=== PATIENT | female | born 1960 | race Caucasian/White ===

== ENCOUNTER 2016-10-31 00:10 | Inpatient (IN) | payer OTHER ==
[~2016-10-31] VITALS: Ht 167.6 cm; Wt 113.7 kg
--- NOTE | 2016-10-31 02:55 | ED ORDER SUMMARY ---
..... Patient: LA GUERRA OrderSheet [facility] VisitID: [id number] [address] [place] [address] 56y, F Registration Date/Time: 10/31/2016 ORDER SHEET Weight: 108.8 kg (stated) Allergies: Chlorhexidine, Nafcillin Sodium, Penicillins, Sulfa Drugs, Vancomycin GENERAL ORDERS: CBC w Diff Urgent (01:00 10/31/2016 Meron COLEMAN) (Ack 1:09 CHagerty ER Product Development Director) (1:42 Urinandez R.N.) CMP Urgent (01:00 10/31/2016 Meron COLEMAN) (Ack 1:09 Rayne ER Product Development Director) (1:42 Urinandez R.N.) PCT (Procalcitonin) Urgent (01:10/31/2016 Meron COLEMAN) (Ack 1:09 Rayne ER Product Development Director) (1:42 Urinandez R.N.) Lactate, Serum Urgent (01:10/31/2016 Meron COLEMAN) (Ack 1:09 Rayne ER Product Development Director) (1:42 Ava R.N.) CRP Urgent (01:00 10/31/2016 Meron COLEMAN) (Ack 1:09 Rayne ER Product Development Director) (1:42 Urinandez R.N.) Blood Culture (No) (N/A) Urgent (02:14 10/31/2016 Meron COLEMAN) (Ack 2:16 CHagerty ER Product Development Director) (2:30 CHagerty ER Product Development Director) MEDICATION ORDERS: Doxycycline Monohydrate PO 100 mg (NOW) (01:10/31/2016 Meron COLEMAN) (Ack 1:19 Ava R.N.) (1:58 Ava R.N.) IV FLUIDS: IV NS : initial bolus none -, then 250 mL/hr for 4h (NOW); Routine (:10/31/2016 Meron COLEMAN) (Ack 1:19 Ava R.N.) (1:57 Ava R.N.) Clindamycin IV 900 mg/50mL (NOW) (:10/31/2016 Meron COLEMAN) (Ack 1:19 Ava Contreras) (Cancelled: Other2:13 Meron COLEMAN) Vancomycin IV 25 mg/kg (NOW) (02:13 10/31/2016 Meron COLEMAN) (Ack 2:35 Ava Dalton.N.) (2:58 Ava R.N.) Benadryl IV 25 mg (NOW) (02:10/31/2016 Meron COLEMAN) (Ack 2:35 Ava ReddNAnnmarie) (2:39 Ava Dalton.N.) ORDER SHEET NOTES: [Electronically signed by Jacobo Khalil R.N. (04:09 10/31/2016)] [Electronically signed by Brice Barriga MD (08:56 10/31/2016)] [Electronically locked/signed by Jacobo Khalil R.N. (04:09 10/31/2016)]
--- NOTE | 2016-10-31 02:55 | ED NURSING NOTES ---
Clinical Report - Nurses [place] [address] [place] [address] 10/31/2016 0:13 Patient: LA GUERRA TRIAGE Triage time 00:22. Acuity: LEVEL 3. Chief Complaint: SKIN PROBLEM and . redness. --00:30 Jacobo Khalil R.N. 00:21 10/31/16. BP: 146/79. HR: 108. RR: 18. O2 saturation: 98%. Temp: 98.1 F. Pain level now: 10/16. --00:30 Jacobo Khalil R.N. Weight: 108.8 kg stated. Height/Length: 66 inches Per Patient. BMI: 38.7. --00: Jacobo Khalil R.N. Medications Lipitor substitute. Neurontin Oral 900mg, at bedtime. Tamoxifen Citrate Oral. Vitamin B-12 Oral. Vitamin D Oral. Vitamin E Complex Oral. --00:28 Jacobo Khalil R.N. Medication/allergy information source: the patient. --00:30 Jacobo Khalil R.N. Allergies Chlorhexidine. Nafcillin Sodium. Penicillins. Sulfa Drugs. Vancomycin. (Can take with Benadryl) --00: Jacobo Khalil R.N. History Arrived by private vehicle. Historian: patient. Accompanied by family. ( Redness and warmth on the left forearm started today. similar problem 2 months ago and was in the hospital for cellulitis and sepsis. No fever. Was driving today from [place] to [employer] fro work.). Reported as located on the left forearm. This started today. It is described as burning and painful. Treatment [employer]: Took ibuprofen. SURGERY HX: Right and left mastectomy. SOCIAL HX: Never smoker. --00:30 Jacobo Khalil R.N. PROBLEMS: Necrotizing Fascitis. Diabetes Mellitus Type 2. Breast Cancer. --00:29 Jacobo Khalil R.N. Interventions ID band on patient. To room. --00:30 Jacobo Khalil R.N. PHYSICAL ASSESSMENT Ambulatory to room. GENERAL / NEURO / PSYCH: Alert. The patient does not appear to be in acute distress. Appears in pain. Oriented X 4. HEENT: Pupils equal, round and reactive to light. Mucous membranes are pink. RESPIRATORY: Respirations not labored. Breath sounds within normal limits. CVS: Capillary refill less than 2 seconds. Pulses within normal limits. GI / : Abdomen nontender. SKIN: Skin is intact, warm and dry. Tenderness on the left forearm- associated with erythema, swelling and increased warmth. --00:31 Jacobo Khalil R.N. NURSING PROGRESS NOTES Head of bed elevated. Call light placed in reach. Side rails up x 1. Bed placed in lowest position. Brakes of bed on. Patient ready for evaluation- chart flagged and ED physician notified. --00:31 Jacobo Khalil R.N. 01:37 10/31/2016 Site #1 started via IV in the right hand with an 22g angiocath; one attempt. Blood drawn: rainbow set. Labeled in the presence of the patient and sent to the lab. Saline lock flushed with 10 mL saline. --01:42 Jacobo Khalil R.N. 01:57 10/31/2016 Started IV Fluids IV NS (Saline); at 250 mL/hr over 4 hour(s) via site #1 via IV pump. Allergies verified and confirmed 5 rights. IV patency established. IV site checked: no pain, redness, or swelling. IV flushed thoroughly pre- and post-medication administration. --01:58 Jacobo Khalil R.N. 01:58 10/31/2016 DOXYCYCLINE MONOHYDRATE PO 100 mg given. Allergies verified and confirmed 5 rights. --01:58 Jacobo Khalil R.N. 02:39 10/31/2016 Benadryl (DiphenhydrAMINE HCl) IVP 25 mg given over 2 minute(s) via site #1. Allergies verified, confirmed 5 rights and sedative warning given to the patient and patient's carboy filler. IV patency established. IV site checked: no pain, redness, or swelling. IV flushed thoroughly pre- and post-medication administration. IVP given by RN. --02:39 Jacobo Khalil R.N. 02:41 10/31/16. BP: 145/72. HR: 108. RR: 18. O2 saturation: 100%. Temp: 99.1 F (oral). --02:43 Jacobo Khalil R.N. Cardiac rhythm: sinus tachycardia. :patient confirmed. Blood samples drawn from the right antecubital space with syringe by tech ; labeled in presence of the patient and sent to lab: blood culture (1st set). The patient is resting quietly. Overall patient status is the same- she states feels the same. RESPIRATORY: No respiratory distress. Breath sounds normal. SKIN: Skin is warm and dry. Skin color within normal limits. --02:43 Jacobo Khalil R.N. 02:57 10/31/2016 Started 2 gm of Vancomycin IVPB in bag #1 500 mL; at 270 mL/hr over 2 hour(s) via site #1 via IV pump. Allergies verified and confirmed 5 rights. IV patency established. IV site checked: no pain, redness, or swelling. IV flushed thoroughly pre- and post-medication administration (Pre-treatment with Benadryl 25 mg IV). --02:58 Jacobo Khalil R.N. Cardiac rhythm: sinus tachycardia. Reassessment after (Benadryl then Vancomycin). She is calm and resting quietly. RESPIRATORY: No respiratory distress. Breath sounds normal. SKIN: Skin is warm and dry. --03:07 Jacobo Khalil R.N. 03:05 10/31/16. BP: 134/98. HR: 105. RR: 18. O2 saturation: 96%. --03:07 Jacobo Khalil R.N. DISPOSITION / DISCHARGE Cardiac rhythm: sinus tachycardia. Admitted to Acute Care. Transported via stretcher. Report was given to a nurse via a phone call. Report included patient's care, treatment, medications, reviewed medication reconcilliation, and condition (including any recent changes or anticipated changes). All questions were answered. Report was acknowledged and care was transferred. (Jason GARCIA). Patient's personal items; items were given to the patient. --03:57 Jacobo Khalil R.N. 03:54 10/31/16. BP: 126/66. HR: 105. RR: 18. O2 saturation: 100%. Temp: 99.1 F (oral). Pain level now: 08/16. --03:57 Jacobo Khalil R.N. Departure time: 04:08. --04:09 Jacobo Khalil R.N. Locked/Released at 10/31/2016 4:09 by Jacobo Khalil R.N.
--- NOTE | 2016-10-31 02:55 | ED CLINICAL REPORT ---
Clinical Report - Physicians/Mid Levels [address] [place] [address] 10/31/2016 0:13 Patient: LA GUERRA Time Seen: 00:56 Oct 31 2016. Arrived- By private vehicle. Historian- patient. CPT: ER phys charges level 5 (#[id number]). HISTORY OF PRESENT ILLNESS Chief Complaint: SKIN RASH. This started today Redness and warmth on the left forearm started today. similar problem 2 months ago and was in the hospital for cellulitis and sepsis. No fever. Was driving today from [facility] to [place] fro work.). and is still present (worse. Progressed quickly over a couple of hours.). It is described as painful. It has been located on the left forearm. No cause has been identified. Similar symptoms previously: As bad. Hospitalized. Diagnosis: cellulitis (sepsis). Recent medical care: Not recently seen/assessed. REVIEW OF SYSTEMS No fever, sore throat or throat, cough or difficulty breathing. No hoarseness, lump in throat, enlarged lymph nodes, abdominal pain or nausea. No diarrhea, difficulty with urination, genital lesions, joint pain or nasal congestion. No epistaxis, cough, difficulty breathing, pedal edema or dizziness. No weakness, diabetic symptoms or easy bruising. The patient has had chills, fatigue and skin rash. All systems otherwise negative, except as recorded above. PAST HISTORY Necrotizing Fascitis. Diabetes Mellitus Type 2. Breast Cancer. Medications: Lipitor substitute. Neurontin Oral 900mg, at bedtime. Tamoxifen Citrate Oral. Vitamin B-12 Oral. Vitamin D Oral. Vitamin E Complex Oral. Allergies: Chlorhexidine. Nafcillin Sodium. Penicillins. Sulfa Drugs. Vancomycin. (Can take with Benadryl). SOCIAL HISTORY Never smoker. ADDITIONAL NOTES The nursing notes have been reviewed. PHYSICAL EXAM Vital Signs: 10/31/2016 00:21 BP: 146/79. HR: 108. RR: 18. O2 saturation: 98%. Temp: 98.1 F. Pain level now: 6/10. Appearance: Alert. Anxious. Patient in mild distress. Eyes: Pupils equal, round and reactive to light. Conjunctivae and eyelids normal. ENT: Ears normal. Nose normal. Pharynx normal. Neck: Neck supple. CVS: Normal heart rate and rhythm. Heart sounds normal. No cardiac murmur. Respiratory: No respiratory distress. Breath sounds normal. Chest nontender. Abdomen: Nontender. Skin: Skin warm. Cellulitis. The rash is erythematous and confluent. Rash present on the left arm, elbow and forearm. There is warmth, induration, tenderness and swelling. Extremities: (as noted.). Neuro: Oriented X 3. No motor deficit. No sensory deficit. LABS, X-RAYS, AND EKG Laboratory Tests: CBC w Diff: (SNEHA: 10/31/2016 01:35) ( [facility] [place] 01:51) Final results Test Result Flag Units (Reference) WHITE BLOOD COUNT 8.3 K/uL (4.5-11.5) RED BLOOD COUNT 5.36 H M/uL (4.00-5.20) HEMOGLOBIN 15.5 gm/dL (12.0-16.0) HEMATOCRIT 46.9 H % (36.0-46.0) MEAN CELL VOLUME 87 fL (80-100) MEAN CORPUSCULAR HGB 29 pg (26-34) MEAN CORPUSCULAR HGB CONC 33 g/dL (31-37) RED CELL DISTRIBUTION WIDTH 15.3 H % (11.6-14.8) PLATELET COUNT 159 K/uL (150-400) NEUTROPHIL % 77.8 H % (50-75) LYMPH % 14.0 L % (25-40) MONO % 8.0 % (3-14) EOSINOPHIL % 0.1 % (0-4) BASOPHIL % 0.1 % (0-2) Lactate, Serum: (SNEHA: 10/31/2016 01:35) ( MsgRcvd 10/31/2016 02:05) Final results Test Result Flag Units (Reference) LACTIC ACID 2.6 H mmol/L (0.4-2.0) CRITICAL RESULTS CALLEDCalled to KAVITHA RUVALCABA RN 10/31/16 0205Were 2 patient identifiers used? YWas the result read back? Y [id number]: (SNEHA: 10/31/2016 01:35) ( MsgRcvd 10/31/2016 02:17) Final results Test Result Flag Units (Reference) PROCALCITONIN <0.5 ng/mL (0-0.5) PCT Concentration: Interpretation : Risk/option for action PCT <=0.5 ng/mL : Systemic : Low risk forinfection(sepsis): progression to severeis not likely. : systemic infection.Local bacterial : CAUTION-PCT levelsinfection is : below 0.5 ng/mL do notpossible. : exclude an infection,because localizedinfections (withoutsystemic signs) may beassociated with suchlow levels. If PCT ismeasured very earlyafter a bacterialchallenge (usually <6hours), these valuesmay still be low. Inthis case PCT shouldbe re-assessed 6-24hours later. PCT >0.5 and : Systemic infection: Moderate risk for<= 2 ng/mL : (sepsis) is : progression to severepossible, but : systemic infection.other conditions : The patient should beare known to : closely monitoredelevate PCT. : both clinically andby re-assessing PCTwithin 6-24 hours. PCT > 2 ng/mL : Systemic infection: High risk for(sepsis) is likely: progression to severeunless other : systemic infection.causes are known. : PCT >= 10 ng/mL : Important systemic: High likelihood ofinflammatory : severe sepsis orresponse, almost : septic shock.exclusively due to:severe bacterial :sepsis or septic :shock. : CMP: (SNEHA: 10/31/2016 01:35) ( MsgRcvd 10/31/2016 02:01) Final results Test Result Flag Units (Reference) GLUCOSE 156 H mg/dL (70-110) BUN 18 mg/dL (7-18) CREATININE 0.9 mg/dL (0.6-1.3) Estimated GFR >60 mL/min Estimated GFR- >60 mL/min Note: Persistent reduction over 3 months in eGFR<60 mL/min/1.73 m2 defines CKD. Patients with eGFR values>=60 mL/min/1.73 m2 may also have CKD if evidence ofpersistent proteinuria. Additional information may be foundat www.kidney.org. SODIUM 140 mmol/L (136-145) POTASSIUM 4.3 mmol/L (3.5-5.1) CHLORIDE 102 mmol/L (98-107) CARBON DIOXIDE 27 mmol/L (21-32) CALCIUM 9.3 mg/dL (8.5-10.1) TOTAL PROTEIN 7.5 g/dL (6.4-8.2) ALBUMIN 3.8 g/dL (3.3-5.0) BILIRUBIN, TOTAL 1.0 mg/dL (0.0-1.0) ALKALINE PHOSPHATASE 107 U/L (46-116) AST (SGOT) 16 U/L (15-37) ALT (SGPT) 29 U/L (12-78) C-REACTIVE PROTEIN 5.3 H mg/dL (0.0-0.9) . PROGRESS AND PROCEDURES Course of Care: 02:49 10/31/16. Patient at risk for sepsis with tachycardia elevated lactic acid and infection source involving the left arm. Blood culture times one taken and vancomycin 25 mg/kg IV. Doxycycline 100 mg by mouth. Patient has underlying diabetes as well as mastectomies and lymphedema and now cellulitis of the left arm. She has prior history of cellulitis and sepsis of the same extremity. IV NS BC times 1 Doxycycline 100 mg po Vancomycin 25mg/kg IV after benadryl 25 mg Iv pre-treatment. Discussed case with on-call health care provider, (Kiel). Reviewed test results. Agreed upon treatment plan and decision to admit. Health care provider will see patient in hospital. Patient/family counseled. Old medical records ordered. Disposition orders written. Disposition: Admitted to Acute Care. CLINICAL IMPRESSION Cellulitis of the left upper arm, left elbow and left forearm. Early sepsis. INSTRUCTIONS Warnings: Further evaluation is necessary. (Electronically signed by Brice Barriga MD 10/31/2016 8:56)
--- NOTE | 2016-10-31 02:55 | ED CLINICAL REPORT ---
Clinical Report - Physicians/Mid Levels [address] [place] [address] 10/31/2016 0:13 Patient: LA GUERRA Time Seen: 00:56 Oct 31 2016. Arrived- By private vehicle. Historian- patient. CPT: ER phys charges level 5 (#[id number]). HISTORY OF PRESENT ILLNESS Chief Complaint: SKIN RASH. This started today Redness and warmth on the left forearm started today. similar problem 2 months ago and was in the hospital for cellulitis and sepsis. No fever. Was driving today from [facility] to [place] fro work.). and is still present (worse. Progressed quickly over a couple of hours.). It is described as painful. It has been located on the left forearm. No cause has been identified. Similar symptoms previously: As bad. Hospitalized. Diagnosis: cellulitis (sepsis). Recent medical care: Not recently seen/assessed. REVIEW OF SYSTEMS No fever, sore throat or throat, cough or difficulty breathing. No hoarseness, lump in throat, enlarged lymph nodes, abdominal pain or nausea. No diarrhea, difficulty with urination, genital lesions, joint pain or nasal congestion. No epistaxis, cough, difficulty breathing, pedal edema or dizziness. No weakness, diabetic symptoms or easy bruising. The patient has had chills, fatigue and skin rash. All systems otherwise negative, except as recorded above. PAST HISTORY Necrotizing Fascitis. Diabetes Mellitus Type 2. Breast Cancer. Medications: Lipitor substitute. Neurontin Oral 900mg, at bedtime. Tamoxifen Citrate Oral. Vitamin B-12 Oral. Vitamin D Oral. Vitamin E Complex Oral. Allergies: Chlorhexidine. Nafcillin Sodium. Penicillins. Sulfa Drugs. Vancomycin. (Can take with Benadryl). SOCIAL HISTORY Never smoker. ADDITIONAL NOTES The nursing notes have been reviewed. PHYSICAL EXAM Vital Signs: 10/31/2016 00:21 BP: 146/79. HR: 108. RR: 18. O2 saturation: 98%. Temp: 98.1 F. Pain level now: 6/10. Appearance: Alert. Anxious. Patient in mild distress. Eyes: Pupils equal, round and reactive to light. Conjunctivae and eyelids normal. ENT: Ears normal. Nose normal. Pharynx normal. Neck: Neck supple. CVS: Normal heart rate and rhythm. Heart sounds normal. No cardiac murmur. Respiratory: No respiratory distress. Breath sounds normal. Chest nontender. Abdomen: Nontender. Skin: Skin warm. Cellulitis. The rash is erythematous and confluent. Rash present on the left arm, elbow and forearm. There is warmth, induration, tenderness and swelling. Extremities: (as noted.). Neuro: Oriented X 3. No motor deficit. No sensory deficit. LABS, X-RAYS, AND EKG Laboratory Tests: CBC w Diff: (SNEHA: 10/31/2016 01:35) ( [facility] 10/[facility]/2016 01:51) Final results Test Result Flag Units (Reference) WHITE BLOOD COUNT 8.3 K/uL (4.5-11.5) RED BLOOD COUNT 5.36 H M/uL (4.00-5.20) HEMOGLOBIN 15.5 gm/dL (12.0-16.0) HEMATOCRIT 46.9 H % (36.0-46.0) MEAN CELL VOLUME 87 fL (80-100) MEAN CORPUSCULAR HGB 29 pg (26-34) MEAN CORPUSCULAR HGB CONC 33 g/dL (31-37) RED CELL DISTRIBUTION WIDTH 15.3 H % (11.6-14.8) PLATELET COUNT 159 K/uL (150-400) NEUTROPHIL % 77.8 H % (50-75) LYMPH % 14.0 L % (25-40) MONO % 8.0 % (3-14) EOSINOPHIL % 0.1 % (0-4) BASOPHIL % 0.1 % (0-2) Lactate, Serum: (SNEHA: 10/31/2016 01:35) ( MsgRcvd 10/31/2016 02:05) Final results Test Result Flag Units (Reference) LACTIC ACID 2.6 H mmol/L (0.4-2.0) CRITICAL RESULTS CALLEDCalled to KAVITHA RUVALCABA RN 10/31/16 0205Were 2 patient identifiers used? YWas the result read back? Y [id number]: (SNEHA: 10/31/2016 01:35) ( MsgRcvd 10/31/2016 02:17) Final results Test Result Flag Units (Reference) PROCALCITONIN <0.5 ng/mL (0-0.5) PCT Concentration: Interpretation : Risk/option for action PCT <=0.5 ng/mL : Systemic : Low risk forinfection(sepsis): progression to severeis not likely. : systemic infection.Local bacterial : CAUTION-PCT levelsinfection is : below 0.5 ng/mL do notpossible. : exclude an infection,because localizedinfections (withoutsystemic signs) may beassociated with suchlow levels. If PCT ismeasured very earlyafter a bacterialchallenge (usually <6hours), these valuesmay still be low. Inthis case PCT shouldbe re-assessed 6-24hours later. PCT >0.5 and : Systemic infection: Moderate risk for<= 2 ng/mL : (sepsis) is : progression to severepossible, but : systemic infection.other conditions : The patient should beare known to : closely monitoredelevate PCT. : both clinically andby re-assessing PCTwithin 6-24 hours. PCT > 2 ng/mL : Systemic infection: High risk for(sepsis) is likely: progression to severeunless other : systemic infection.causes are known. : PCT >= 10 ng/mL : Important systemic: High likelihood ofinflammatory : severe sepsis orresponse, almost : septic shock.exclusively due to:severe bacterial :sepsis or septic :shock. : CMP: (SNEHA: 10/31/2016 01:35) ( MsgRcvd 10/31/2016 02:01) Final results Test Result Flag Units (Reference) GLUCOSE 156 H mg/dL (70-110) BUN 18 mg/dL (7-18) CREATININE 0.9 mg/dL (0.6-1.3) Estimated GFR >60 mL/min Estimated GFR- >60 mL/min Note: Persistent reduction over 3 months in eGFR<60 mL/min/1.73 m2 defines CKD. Patients with eGFR values>=60 mL/min/1.73 m2 may also have CKD if evidence ofpersistent proteinuria. Additional information may be foundat www.kidney.org. SODIUM 140 mmol/L (136-145) POTASSIUM 4.3 mmol/L (3.5-5.1) CHLORIDE 102 mmol/L (98-107) CARBON DIOXIDE 27 mmol/L (21-32) CALCIUM 9.3 mg/dL (8.5-10.1) TOTAL PROTEIN 7.5 g/dL (6.4-8.2) ALBUMIN 3.8 g/dL (3.3-5.0) BILIRUBIN, TOTAL 1.0 mg/dL (0.0-1.0) ALKALINE PHOSPHATASE 107 U/L (46-116) AST (SGOT) 16 U/L (15-37) ALT (SGPT) 29 U/L (12-78) C-REACTIVE PROTEIN 5.3 H mg/dL (0.0-0.9) . PROGRESS AND PROCEDURES Course of Care: 02:49 10/31/16. Patient at risk for sepsis with tachycardia elevated lactic acid and infection source involving the left arm. Blood culture times one taken and vancomycin 25 mg/kg IV. Doxycycline 100 mg by mouth. Patient has underlying diabetes as well as mastectomies and lymphedema and now cellulitis of the left arm. She has prior history of cellulitis and sepsis of the same extremity. IV NS BC times 1 Doxycycline 100 mg po Vancomycin 25mg/kg IV after benadryl 25 mg Iv pre-treatment. Discussed case with on-call health care provider, (Kiel). Reviewed test results. Agreed upon treatment plan and decision to admit. Health care provider will see patient in hospital. Patient/family counseled. Old medical records ordered. Disposition orders written. Disposition: Admitted to Acute Care. CLINICAL IMPRESSION Cellulitis of the left upper arm, left elbow and left forearm. Early sepsis. INSTRUCTIONS Warnings: Further evaluation is necessary. (Electronically signed by Brice Barriga MD 10/31/2016 8:56)
--- NOTE | 2016-10-31 02:55 | ED NURSING NOTES ---
Clinical Report - Nurses [facility] [address] [place] [address] 10/31/2016 0:13 Patient: LA GUERRA TRIAGE Triage time 00:22. Acuity: LEVEL 3. Chief Complaint: SKIN PROBLEM and . redness. --00:30 Jacobo Khalil R.N. 00:21 10/31/16. BP: 146/79. HR: 108. RR: 18. O2 saturation: 98%. Temp: 98.1 F. Pain level now: 10/16. --00:30 Jacobo Khalil R.N. Weight: 108.8 kg stated. Height/Length: 66 inches Per Patient. BMI: 38.7. --00: Jacobo Khalil R.N. Medications Lipitor substitute. Neurontin Oral 900mg, at bedtime. Tamoxifen Citrate Oral. Vitamin B-12 Oral. Vitamin D Oral. Vitamin E Complex Oral. --00:28 Jacobo Khalil R.N. Medication/allergy information source: the patient. --00:30 Jacobo Khalil R.N. Allergies Chlorhexidine. Nafcillin Sodium. Penicillins. Sulfa Drugs. Vancomycin. (Can take with Benadryl) --00: Jacobo Khalil R.N. History Arrived by private vehicle. Historian: patient. Accompanied by family. ( Redness and warmth on the left forearm started today. similar problem 2 months ago and was in the hospital for cellulitis and sepsis. No fever. Was driving today from [place] to [email or web address] fro work.). Reported as located on the left forearm. This started today. It is described as burning and painful. 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 SURGERY HX: Right and left mastectomy. SOCIAL HX: Never smoker. --00:30 Jacobo Khalil R.N. PROBLEMS: Necrotizing Fascitis. Diabetes Mellitus Type 2. Breast Cancer. --00:29 Jacobo Khalil R.N. Interventions ID band on patient. To room. --00:30 Jacobo Khalil R.N. PHYSICAL ASSESSMENT Ambulatory to room. GENERAL / NEURO / PSYCH: Alert. The patient does not appear to be in acute distress. Appears in pain. Oriented X 4. HEENT: Pupils equal, round and reactive to light. Mucous membranes are pink. RESPIRATORY: Respirations not labored. Breath sounds within normal limits. CVS: Capillary refill less than 2 seconds. Pulses within normal limits. GI / : Abdomen nontender. SKIN: Skin is intact, warm and dry. Tenderness on the left forearm- associated with erythema, swelling and increased warmth. --00:31 Jacobo Khalil R.N. NURSING PROGRESS NOTES Head of bed elevated. Call light placed in reach. Side rails up x 1. Bed placed in lowest position. Brakes of bed on. Patient ready for evaluation- chart flagged and ED physician notified. --00:31 Jacobo Khalil R.N. 01:37 10/31/2016 Site #1 started via IV in the right hand with an 22g angiocath; one attempt. Blood drawn: rainbow set. Labeled in the presence of the patient and sent to the lab. Saline lock flushed with 10 mL saline. --01:42 Jacobo Khalil R.N. 01:57 10/31/2016 Started IV Fluids IV NS (Saline); at 250 mL/hr over 4 hour(s) via site #1 via IV pump. Allergies verified and confirmed 5 rights. IV patency established. IV site checked: no pain, redness, or swelling. IV flushed thoroughly pre- and post-medication administration. --01:58 Jacobo Khalil R.N. 01:58 10/31/2016 DOXYCYCLINE MONOHYDRATE PO 100 mg given. Allergies verified and confirmed 5 rights. --01:58 Jacobo Khalil R.N. 02:39 10/31/2016 Benadryl (DiphenhydrAMINE HCl) IVP 25 mg given over 2 minute(s) via site #1. Allergies verified, confirmed 5 rights and sedative warning given to the patient and patient's cement tester assistant. IV patency established. IV site checked: no pain, redness, or swelling. IV flushed thoroughly pre- and post-medication administration. IVP given by RN. --02:39 Jacobo Khalil R.N. 02:41 10/31/16. BP: 145/72. HR: 108. RR: 18. O2 saturation: 100%. Temp: 99.1 F (oral). --02:43 Jacobo Khalil R.N. Cardiac rhythm: sinus tachycardia. :patient confirmed. Blood samples drawn from the right antecubital space with syringe by tech ; labeled in presence of the patient and sent to lab: blood culture (1st set). The patient is resting quietly. Overall patient status is the same- she states feels the same. RESPIRATORY: No respiratory distress. Breath sounds normal. SKIN: Skin is warm and dry. Skin color within normal limits. --02:43 Jacobo Khalil R.N. 02:57 10/31/2016 Started 2 gm of Vancomycin IVPB in bag #1 500 mL; at 270 mL/hr over 2 hour(s) via site #1 via IV pump. Allergies verified and confirmed 5 rights. IV patency established. IV site checked: no pain, redness, or swelling. IV flushed thoroughly pre- and post-medication administration (Pre-treatment with Benadryl 25 mg IV). --02:58 Jacobo Khalil R.N. Cardiac rhythm: sinus tachycardia. Reassessment after (Benadryl then Vancomycin). She is calm and resting quietly. RESPIRATORY: No respiratory distress. Breath sounds normal. SKIN: Skin is warm and dry. --03:07 Jacobo Khalil R.N. 03:05 10/31/16. BP: 134/98. HR: 105. RR: 18. O2 saturation: 96%. --03:07 Jacobo Khalil R.N. DISPOSITION / DISCHARGE Cardiac rhythm: sinus tachycardia. Admitted to Acute Care. Transported via stretcher. Report was given to a nurse via a phone call. Report included patient's care, treatment, medications, reviewed medication reconcilliation, and condition (including any recent changes or anticipated changes). All questions were answered. Report was acknowledged and care was transferred. (Jason GARCIA). Patient's personal items; items were given to the patient. --03:57 Jacobo Khalil R.N. 03:54 10/31/16. BP: 126/66. HR: 105. RR: 18. O2 saturation: 100%. Temp: 99.1 F (oral). Pain level now: 08/16. --03:57 Jacobo Khalil R.N. Departure time: 04:08. --04:09 Jacobo Khalil R.N. Locked/Released at 10/31/2016 4:09 by Jacobo Khalil R.N.
--- NOTE | 2016-10-31 02:55 | ED ORDER SUMMARY ---
..... Patient: LA GUERRA OrderSheet [facility] VisitID: [id number] [address] [place] [address] 56y, F Registration Date/Time: 10/31/2016 ORDER SHEET Weight: 108.8 kg (stated) Allergies: Chlorhexidine, Nafcillin Sodium, Penicillins, Sulfa Drugs, Vancomycin GENERAL ORDERS: CBC w Diff Urgent (01:00 10/31/2016 Meron COLEMAN) (Ack 1:09 CHagerty ER Interactive Art Director) (1:42 Urinandez R.N.) CMP Urgent (01:00 10/31/2016 Meron COLEMAN) (Ack 1:09 Rayne ER Interactive Art Director) (1:42 Urinandez R.N.) PCT (Procalcitonin) Urgent (01:10/31/2016 Meron COLEMAN) (Ack 1:09 Rayne ER Interactive Art Director) (1:42 Urinandez R.N.) Lactate, Serum Urgent (01:10/31/2016 Meron COLEMAN) (Ack 1:09 Rayne ER Interactive Art Director) (1:42 Ava R.N.) CRP Urgent (01:00 10/31/2016 Meron COLEMAN) (Ack 1:09 Rayne ER Interactive Art Director) (1:42 Urinandez R.N.) Blood Culture (No) (N/A) Urgent (02:14 10/31/2016 Meron COLEMAN) (Ack 2:16 CHagerty ER Interactive Art Director) (2:30 CHagerty ER Interactive Art Director) MEDICATION ORDERS: Doxycycline Monohydrate PO 100 mg (NOW) (01:10/31/2016 Meron COLEMAN) (Ack 1:19 Ava R.N.) (1:58 Aav R.N.) IV FLUIDS: IV NS : initial bolus none -, then 250 mL/hr for 4h (NOW); Routine (:10/31/2016 Meron COLEMAN) (Ack 1:19 Ava R.N.) (1:57 Ava R.N.) Clindamycin IV 900 mg/50mL (NOW) (:10/31/2016 Meron COLEMAN) (Ack 1:19 Ava Contreras) (Cancelled: Other2:13 Meron COLEMAN) Vancomycin IV 25 mg/kg (NOW) (02:13 10/31/2016 Meron COLEMAN) (Ack 2:35 Ava Dalton.N.) (2:58 Ava R.N.) Benadryl IV 25 mg (NOW) (02:10/31/2016 Meron COLEMAN) (Ack 2:35 Ava ReddNAnnmarie) (2:39 Ava Dalton.N.) ORDER SHEET NOTES: [Electronically signed by Jacobo Khalil R.N. (04:09 10/31/2016)] [Electronically signed by Brice Barriga MD (08:56 10/31/2016)] [Electronically locked/signed by Jacobo Khalil R.N. (04:09 10/31/2016)]
[2016-10-31 04:24] VITALS: BP 142/68
[2016-10-31] MEDS ORDERED: NEURONTIN300 MG PO (05:01)
[2016-10-31] MEDS ORDERED: TAMOXIFEN CITRA10 MG PO (05:03)
[2016-10-31] MEDS ORDERED: METFORMIN HCL500 MG PO (05:04)
[2016-10-31] MEDS ORDERED: INVOKANA100 MG PO (05:06)
[2016-10-31] MEDS ORDERED: MULTIPLE VITAMIN PO (05:07)
--- NOTE | 2016-10-31 08:56 | ED DISCHARGE INSTRUCTIONS ---
Patient: LA GUERRA General Instructions [facility] VisitID: [id number] [address] [place] [address] 56y, F Registration Date/Time: 10/31/2016 Cellulitis of the left upper arm, left elbow and left forearm. Early sepsis. INSTRUCTIONS Warnings: Further evaluation is necessary. ADDITIONAL INFORMATION Cellulitis You have an infection of the skin known as cellulitis. This usually starts with a scrape, cut, insect bite, blister or other opening in the skin which becomes infected. This is a serious condition. It must be watched closely to be sure the infection is not spreading. With antibiotic treatment, the size of the red area will gradually shrink in size until the skin returns to normal. This will take 7-10 days. The red area should never increase in size once the antibiotic medicine has been started. Occasionally, an infection will be resistant to one antibiotic and another one will have to be used. Home Care: 1) Limit the use of the affected part, since excess movement can cause the infection to spread. 2) If the infection is on your leg, walk as little as possible during the first few days of the treatment. Keep your leg elevated while sitting. This will reduce swelling. 3) Take all of the antibiotic medicine exactly as directed until it is gone. Be careful not to miss any doses, especially during the first seven days. Follow Up with your doctor or this facility as directed. Check the infected area daily for the warning signs listed below. Get Prompt Medical Attention if any of the following occur: -- Spreading area of redness -- Increasing swelling or pain -- Appearance of pus or drainage -- Fever over 100.4 F (38.0 C) oral, or over 101.4 F (38.6 C) rectal, after two days on antibiotics You have been given the following additional information: Cellulitis (Electronically signed by Brice Barriga MD 10/31/2016 8:56)
--- NOTE | 2016-10-31 08:56 | ED MAR SUMMARY ---
..... Medication Administration Record [facility] [address] [place] [address] Patient: LA GUERRA Visit ID: [id number] 56y, F Weight: 108.8 kg Height/Length: 66 in BMI: 38.7 ALLERGIES: Chlorhexidine, Nafcillin Sodium, Penicillins, Sulfa Drugs, Vancomycin Start 01:57 10/31/2016 Jacobo Khalil R.N. Medication Administered: IV NS (SALINE), Dose: IV Fluids over 4 hour(s), Rate: 250 mL/hr, Site: #1 right hand. Medication Ordered: IV NS : initial bolus none -, then 250 mL/hr for 4h (NOW); Routine. Given 01:58 10/31/2016 Jacobo Khalil R.N. Medication Administered: DOXYCYCLINE MONOHYDRATE [PO], Dose: 100 mg PO. Medication Ordered: Doxycycline Monohydrate PO 100 mg (NOW). Given 02:39 10/31/2016 Jacobo Khalil R.N. Medication Administered: BENADRYL [IVP] (DIPHENHYDRAMINE HCL), Dose: 25 mg IVP over 2 minute(s), Site: #1 right hand. Medication Ordered: Benadryl IV 25 mg (NOW). Start 02:57 10/31/2016 Jacobo Khalil R.N. Medication Administered: VANCOMYCIN [IVPB], Dose: 2 gm IVPB over 2 hour(s), Rate: 270 mL/hr, Dispensed: 500 mL bag, Site: #1 right hand. Medication Ordered: Vancomycin IV 25 mg/kg (NOW).
--- NOTE | 2016-10-31 08:56 | ED MED RECONCILIATION SUMMARY ---
Patient: LEANDRA GUERRAE Narcisa Medication Reconciliation Report [facility] VisitID: [id number] [address] [place] [address] 56y, F Registration Date/Time: 10/31/2016 Weight: 108.8 kg Height/Length: 66 in. BMI: 38.7 ALLERGIES: Chlorhexidine, Nafcillin Sodium, Penicillins, Sulfa Drugs, Vancomycin The patient's Home Medications are listed below: THE FOLLOWING MEDICATIONS NEED TO BE RECONCILED: Lipitor substitute Neurontin Oral 900mg, at bedtime Tamoxifen Citrate Oral Vitamin B-12 Oral Vitamin D Oral Vitamin E Complex Oral The source(s) of the original Home Medication information: patient The following Medications were given to the patient in the Emergency Department: IV NS IV Fluids bolus 0, then 250 mL/hr, administered: 10/31/2016 1:57:00 AM DOXYCYCLINE MONOHYDRATE [PO] PO 100 mg, administered: 10/31/2016 1:58:00 AM Benadryl [IVP] IVP 25 mg, administered: 10/31/2016 2:39:00 AM Vancomycin [IVPB] IVPB bolus 0, then 2 gm 270 mL/hr, administered: 10/31/2016 2:57:00 AM The following Medications were prescribed to the patient: None.
--- NOTE | 2016-10-31 08:56 | ED DISCHARGE INSTRUCTIONS ---
Patient: LA GUERRA General Instructions [facility] VisitID: [id number] [address] [place] [address] 56y, F Registration Date/Time: 10/31/2016 Cellulitis of the left upper arm, left elbow and left forearm. Early sepsis. INSTRUCTIONS Warnings: Further evaluation is necessary. ADDITIONAL INFORMATION Cellulitis You have an infection of the skin known as cellulitis. This usually starts with a scrape, cut, insect bite, blister or other opening in the skin which becomes infected. This is a serious condition. It must be watched closely to be sure the infection is not spreading. With antibiotic treatment, the size of the red area will gradually shrink in size until the skin returns to normal. This will take 7-10 days. The red area should never increase in size once the antibiotic medicine has been started. Occasionally, an infection will be resistant to one antibiotic and another one will have to be used. Home Care: 1) Limit the use of the affected part, since excess movement can cause the infection to spread. 2) If the infection is on your leg, walk as little as possible during the first few days of the treatment. Keep your leg elevated while sitting. This will reduce swelling. 3) Take all of the antibiotic medicine exactly as directed until it is gone. Be careful not to miss any doses, especially during the first seven days. Follow Up with your doctor or this facility as directed. Check the infected area daily for the warning signs listed below. Get Prompt Medical Attention if any of the following occur: -- Spreading area of redness -- Increasing swelling or pain -- Appearance of pus or drainage -- Fever over 100.4 F (38.0 C) oral, or over 101.4 F (38.6 C) rectal, after two days on antibiotics You have been given the following additional information: Cellulitis (Electronically signed by Brice Barriga MD 10/31/2016 8:56)
--- NOTE | 2016-10-31 08:56 | ED MAR SUMMARY ---
..... Medication Administration Record [facility] [address] [place] [address] Patient: LA GUERRA Visit ID: [id number] 56y, F Weight: 108.8 kg Height/Length: 66 in BMI: 38.7 ALLERGIES: Chlorhexidine, Nafcillin Sodium, Penicillins, Sulfa Drugs, Vancomycin Start 01:57 10/31/2016 Jacobo Khalil R.N. Medication Administered: IV NS (SALINE), Dose: IV Fluids over 4 hour(s), Rate: 250 mL/hr, Site: #1 right hand. Medication Ordered: IV NS : initial bolus none -, then 250 mL/hr for 4h (NOW); Routine. Given 01:58 10/31/2016 Jacobo Khalil R.N. Medication Administered: DOXYCYCLINE MONOHYDRATE [PO], Dose: 100 mg PO. Medication Ordered: Doxycycline Monohydrate PO 100 mg (NOW). Given 02:39 10/31/2016 Jacobo Khalil R.N. Medication Administered: BENADRYL [IVP] (DIPHENHYDRAMINE HCL), Dose: 25 mg IVP over 2 minute(s), Site: #1 right hand. Medication Ordered: Benadryl IV 25 mg (NOW). Start 02:57 10/31/2016 Jacobo Khalil R.N. Medication Administered: VANCOMYCIN [IVPB], Dose: 2 gm IVPB over 2 hour(s), Rate: 270 mL/hr, Dispensed: 500 mL bag, Site: #1 right hand. Medication Ordered: Vancomycin IV 25 mg/kg (NOW).
--- NOTE | 2016-10-31 08:56 | ED MED RECONCILIATION SUMMARY ---
Patient: LEANDRA GUERRAE Narcisa Medication Reconciliation Report [facility] VisitID: [id number] [address] [place] [address] 56y, F Registration Date/Time: 10/31/2016 Weight: 108.8 kg Height/Length: 66 in. BMI: 38.7 ALLERGIES: Chlorhexidine, Nafcillin Sodium, Penicillins, Sulfa Drugs, Vancomycin The patient's Home Medications are listed below: THE FOLLOWING MEDICATIONS NEED TO BE RECONCILED: Lipitor substitute Neurontin Oral 900mg, at bedtime Tamoxifen Citrate Oral Vitamin B-12 Oral Vitamin D Oral Vitamin E Complex Oral The source(s) of the original Home Medication information: patient The following Medications were given to the patient in the Emergency Department: IV NS IV Fluids bolus 0, then 250 mL/hr, administered: 10/31/2016 1:57:00 AM DOXYCYCLINE MONOHYDRATE [PO] PO 100 mg, administered: 10/31/2016 1:58:00 AM Benadryl [IVP] IVP 25 mg, administered: 10/31/2016 2:39:00 AM Vancomycin [IVPB] IVPB bolus 0, then 2 gm 270 mL/hr, administered: 10/31/2016 2:57:00 AM The following Medications were prescribed to the patient: None.
[2016-10-31 10:45] VITALS: BP 151/87
--- NOTE | 2016-10-31 14:23 | History & Physical Report ---
Medications and Allergies Allergies Coded Allergies: Clindamycin (Severe, 11/01/16) Nafcillin (Severe, FACIAL SWELLING SOB 07/09/10) Penicillins (Severe, HIVES -- NEEDS BENADRYL FIRST 11/01/16) Sulfa Drugs (Severe, SOB HIVES FACIAL SWELLING 08/13/10) Vancomycin (Intermediate, SORE THROAT, REDNESS IN FACE 09/13/10) CAN TAKE IF BENADRYL GIVEN Chlorhexidine (Mild, REDNESS 09/13/10) Coconut Oil (Intermediate, SWELLING HIVES 11/01/16) Lavandin Oil (Intermediate, SWELLING HIVES 11/01/16) Reconcile Medications Scheduled Medications Anastrozole 1 MG TAB 1 MG PO DAILY (Reported) Bacillus Coagulans-Inulin (Probiotic Formula 1-250 Billion-MG) 1 CAP CAP 2 CAP PO QID Canagliflozin (Invokana) 100 MG TAB 1,000 MG PO TID (Reported) Cephalexin (Keflex) 750 MG CAP 750 MG PO Q6H Gabapentin (Neurontin 300 MG) 300 MG CAP 900 MG PO HS (Reported) Liraglutide (Victoza) 18 MG/3 ML INJ 1.2 UNITS SC QAM BLOOD SUGAR CONTROL ( Reported) Metformin Hydrochloride (Metformin HCl 500 MG) 500 MG TAB 1,000 MG PO BIDWC ( Reported) Multiple Vitamin TAB 1 TAB PO DAILY (Reported) Pramipexole Dihydrochloride (Mirapex) 0.25 MG TAB 0.125 MG PO QHS (Reported)
[2016-10-31 14:48] VITALS: BP 124/56
--- NOTE | 2016-10-31 15:31 | History & Physical Report ---
Information Source Information Source: Self Reliability: Fair History Chief Complaint Left arm redness History of Present Illness Patient is a 56-year-old female with a past medical history of breast cancer, diabetes, chemotherapy-induced neuropathy and previous history of cellulitis that is presenting with a one-day history of left arm redness. Patient had been in her normal state of health for the past couple of months when she traveled from [place] to [place] and noticed that over the time that she's been driving her arm was getting progressively more and more red. Patient has had cellulitis in the past and noticed that this presentation was strikingly similar. Patient went home and tried warm compresses and arm elevation which should not do much in terms of alleviation of the redness. Patient then started to develop pain to the point where she really should come to the hospital. Patient does not recall how she obtained a cellulitis. She has no recent skin tears, injection, sick contacts, or recent illness. Patient besides this has no other complaints and is just worried that this might be indicative of something else. Patient is otherwise stable Patient History 1. Cellulitis of left upper extremity 2. EARLY SEPSIS 3. Diabetes mellitus 4. Breast CA Social History Surgical history Bilateral complete vasectomy carpal tunnel release Gallbladder surgery Patient does not use tobacco has never smoked. Patient does not drink nor does she use illicit substances. Patient drinks approximately 2 cups of coffee a day and 0 soft drinks. 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 Patient is up-to-date on the [facility] health maintenance and disease per disease prevention measures. Patient has had an EKG cholesterol check blood sugar H B A1c vision test hearing test dental Pap smear pelvic and mammogram done all in Family History Family history was reviewed; no changes noted. Advance Directive Living Will Medications and Allergies Medications Home medications Metformin 1000 mg twice a day Interval, 100 mg 3 times a day victoza 1.2 g daily R MedX Mirapex Current Medications Sig/Alexandra Start time Last Medication Dose Route Stop Time Status Admin Clarify Med Order See Dose 1130 11/01 1130 AC Insts (1) IV 11/01 1131 Gabapentin 900 MG QHS 10/31 2100 AC PO Diphenhydramine HCl 12.5 MG 0400,1200,2000 10/31 1200 AC 10/31 IV 1239 Pantoprazole Sodium 40 MG DAILY@0600 10/31 1200 AC 10/31 IV 1238 Vancomycin HCl/ 200 ML 0400,1200,2000 10/31 1200 AC 10/31 Dextrose IV 1239 Vancomycin HCl See Dose .[PER PHARMACY] 10/31 0945 AC Insts (2) IV Clarify Med Order See Dose ASDIRECTED 10/31 0930 CAN Insts (3) IV Enoxaparin Sodium 40 MG QAM 10/31 0900 AC 10/31 SC 0844 Insulin Human Lispro See Dose ACHS 10/31 0730 AC 10/31 Insts (4) SC 1153 Acetaminophen 650 MG Q6H PRN 10/31 0715 AC PO Sodium Chloride 1,000 ML ASDIRECTED 10/31 0715 AC 10/31 IV 0844 Dextrose/Sodium 1,000 ML ASDIRECTED 10/31 0300 AC 10/31 Chloride/Electrolyt IV 0617 Ondansetron HCl 4 MG Q4H PRN 10/31 0300 AC IV Dose Instructions: (1)Clarify Med Order: VANCOMYCIN TROUGH (2)Vancomycin HCl: DOSING PER PHARMACY (3)Clarify Med Order: VANCO PER PHARMACY (4)Insulin Human Lispro: LOW DOSE: ACCUCHECK AND SLIDING SCALE >>To change sliding scale DISCONTINUE this order and enter a NEW order. Thanks< Allergies Coded Allergies: Nafcillin (Severe, FACIAL SWELLING SOB 07/09/10) Sulfa Drugs (Severe, SOB HIVES FACIAL SWELLING 08/13/10) Vancomycin (Intermediate, SORE THROAT, REDNESS IN FACE 09/13/10) CAN TAKE IF BENADRYL GIVEN Chlorhexidine (Mild, REDNESS 09/13/10) Coconut Oil (SWELLING HIVES 07/09/10) Lavandin Oil (SWELLING HIVES 07/09/10) Uncoded Allergies: penicillin needs benadryl first (Severe, Hives 10/01/10) Reconcile Medications Scheduled Medications Canagliflozin (Invokana) 100 MG TAB 1,000 MG PO TID (Reported) Gabapentin (Neurontin 300 MG) 300 MG CAP 900 MG PO HS (Reported) Metformin Hydrochloride (Metformin HCl 500 MG) 500 MG TAB 1,000 MG PO BIDWC ( Reported) Multiple Vitamin TAB 1 TAB PO DAILY (Reported) Discontinued Medications Tamoxifen Citrate 10 MG TAB 10 MG PO HS (Reported) Discontinued reason: No Longer Taking Review of Systems Constitutional Malaise. Denies: Fever, Chills, Sweats, Weakness, Other. Eyes Denies: Pain, Vision Change, Conjunctival Inflammation, Eyelid Inflammation, Redness, Other. ENT Denies: Ear Pain, Ear Discharge, Nose Pain, Nasal Discharge, Nasal Congestion, Mouth Pain, Mouth Swelling, Throat Pain, Throat Swelling, Other. Respiratory Denies: Cough, Dry, SOB w/exertion, Wheezing, Hemoptysis, Pleuritic Pain, Sputum , Other. Cardiovascular Denies: Chest Pain, Palpitations, Orthopnea, PND, Edema, Light-headedness, Other. Gastrointestinal Denies: Nausea, Vomiting, Abdominal Pain, Diarrhea, Constipation, Melena, Hematochezia, Other. Genitourinary Denies: Dysuria, Frequency, Incontinence, Hematuria, Retention, Other. Musculoskeletal Denies: Neck Pain, Shoulder Pain, Arm Pain, Back Pain, Hand Pain, Leg Pain, Foot Pain, Other. Skin Rash. Denies: Lesions, Jaundice, Bruising, Other. Neurological Denies: Weakness, Numbness, Incoordination, Change in speech, Confusion, Seizures, Other. Physical Exam Vital Signs / I&Os Vital Signs Date Time Temp Pulse Resp B/P Pulse O2 O2 Flow FiO2 Ox Delivery Rate 10/31 1448 99.7 88 16 124/56 98 Room Air 10/31 1045 99.0 102 18 151/87 94 Room Air 10/31 0526 Room Air 10/31 0424 99.9 108 15 142/68 94 Room Air General Appearance Alert, Oriented X3, No acute distress HEENT Normal exam, Atraumatic, PERRLA, Moist mucous membranes Lungs Clear to auscultation Cardiovascular Regular rate and rhythm, Normal S1 and S2, No murmurs, gallops, rubs Abdomen Soft, No tenderness, No rebound Extremities No edema, Normal pulses, No tenderness Skin No Breakdown, No Significant Lesions Neurological Normal speech, Normal tone, Sensation intact, Cranial nerves intact Psych/Mental Status Mood normal LAB Results Laboratory Tests 10/31 10/31 10/31 10/31 0135 0135 0135 0800 Chemistry Plasma Sodium (136 - 145 mmol/L) 140 Plasma Potassium (3.5 - 5.1 mmol/L) 4.3 Plasma Chloride (98 - 107 mmol/L) 102 CO2 (Enzymatic) (21 - 32 mmol/L) 27 BUN (7 - 18 mg/dL) 18 Creatinine (0.6 - 1.3 mg/dL) 0.9 Est GFR ( Amer) (mL/min) >60 Est GFR (Non-Af Amer) (mL/min) >60 Glucose (70 - 110 mg/dL) 156 Lactic Acid (0.4 - 2.0 mmol/L) 2.6 1.8 Plasma Calcium (8.5 - 10.1 mg/dL) 9.3 Total Bilirubin (0.0 - 1.0 mg/dL) 1.0 AST (15 - 37 U/L) 16 ALT (12 - 78 U/L) 29 Alkaline Phosphatase (46 - 116 U/L) 107 C-Reactive Protein (0.0 - 0.9 mg/dL) 5.3 Total Protein (6.4 - 8.2 g/dL) 7.5 Albumin (3.3 - 5.0 g/dL) 3.8 Procalcitonin (0 - 0.5 ng/mL) <0.5 Hematology WBC (4.5 - 11.5 K/uL) 8.3 RBC (4.00 - 5.20 M/uL) 5.36 Hgb (12.0 - 16.0 gm/dL) 15.5 Hct (36.0 - 46.0 %) 46.9 MCV (80 - 100 fL) 87 MCH (26 - 34 pg) 29 RDW (11.6 - 14.8 %) 15.3 Neut % (Auto) (50 - 75 %) 77.8 Lymph % (Auto) (25 - 40 %) 14.0 [place] % (Auto) (3 - 14 %) 8.0 Eos % (Auto) (0 - 4 %) 0.1 Baso % (Auto) (0 - 2 %) 0.1 Plt Count, EDTA (150 - 400 K/uL) 159 PUBS MCHC (31 - 37 g/dL) 33 Microbiology Date/Time Procedure - Status Source Growth 10/31 224 Blood Culture - RECD BLOOD Assessment and Plan Problem List 1. Cellulitis of left upper extremity Plan Patient is presenting with cellulitis of the left arm Since admission patient has already had significant reduction of this degree of erythema Currently patient is vancomycin We'll continue with vancomycin IV dosing as per pharmacy We will continue to monitor erythema areas Given rapid improvement patient will most likely be discharged tomorrow with by mouth antibiotics 2. EARLY SEPSIS Plan Patient and elevated lactate upon admission Lactate taken 6 hours later normalized We'll continue with IV hydration We'll continue with vancomycin 3. Diabetes mellitus Plan Patient has an established history of diabetes type 2 Patient is currently on metformin 1000 mg twice a day As well as interval, 100 mg 3 times a day We'll hold both medications for the time being Will initiate sliding scale coverage before meals at bedtime 4. Breast CA Plan Remote history of breast cancer We'll avoid any sort of instrumentation left arm
[2016-10-31] MEDS ORDERED: VICTOZA18 MG/3 ML SC (18:19)
[2016-10-31] MEDS ORDERED: ANASTROZOLE1 MG PO (18:20)
[2016-10-31] MEDS ORDERED: MIRAPEX0.25 MG PO (18:22)
[2016-10-31 18:33] VITALS: BP 120/63
[2016-10-31 23:12] VITALS: BP 110/55
[2016-11-01 04:36] VITALS: BP 104/45
[2016-11-01 06:46] VITALS: BP 126/78
[2016-11-01 10:34] VITALS: BP 119/73
[2016-11-01] MEDS ORDERED: CLEOCIN300 MG PO (12:39)
--- NOTE | 2016-11-01 12:43 | Provider's Discharge Care Plan ---
Problem, Goal, Plan Problem List 1. Cellulitis of left upper extremity Instructions: - complete course of antibiotics - to avoid further attacks maintain good hygiene and lose sub cutaneous tissue 2. Diabetes mellitus Instructions: Take meds as directed
--- NOTE | 2016-11-01 12:44 | Discharge Summary ---
Discharge Summary Report Admit Date 10/31/16 Discharge Date 11/01/16 Admission Diagnosis cellulitis Discharge Diagnosis left arm cellulitis Brief History Please refer to admission H&P Hospital Course Patient was admitted for left arm cellulitis. Patient was seen and examined by the hospitalist. Patient was seen to have low cellulitis limited to the left arm without any sort of fluctuation or fluid collection. Patient was treated with IV vancomycin and even on the first day of admission patient had almost instantaneous reduction in the degree of erythema. Patient continued to proceed in the appropriate direction. Today upon examination patient's erythema was seen to be 90% better and patient did not complain of any pain or swelling. Patient will be discharged today on clindamycin. She will follow up with her PMD in 2 weeks. She'll resume all her home medications all questions were answered by myself General Appearance Alert, Oriented X3, No acute distress HEENT PERRLA, EOMI, Mucous membran moist/pink Lungs Clear to auscultation Cardiovascular Normal S1, Normal S2, No murmurs, Gallops Abdomen Soft, No tenderness Skin No Breakdown, No Significant Lesions Neurological Normal speech, Normal tone, Sensation intact, Cranial nerves 3-12 NL Lab/Imaging Laboratory Tests 11/01 11/01 11/01 0545 1102 1115 Chemistry Plasma Sodium (136 - 145 mmol/L) 141 Plasma Potassium (3.5 - 5.1 mmol/L) 3.9 Plasma Chloride (98 - 107 mmol/L) 105 CO2 (Enzymatic) (21 - 32 mmol/L) 25 BUN (7 - 18 mg/dL) 12 Creatinine (0.6 - 1.3 mg/dL) 0.7 Est GFR ( Amer) (mL/min) >60 Est GFR (Non-Af Amer) (mL/min) >60 Glucose (70 - 110 mg/dL) 170 Lactic Acid Cancelled Plasma Calcium (8.5 - 10.1 mg/dL) 8.2 Plasma Magnesium (1.8 - 2.4 mg/dL) 1.9 Total Bilirubin (0.0 - 1.0 mg/dL) 1.0 AST (15 - 37 U/L) 20 ALT (12 - 78 U/L) 27 Alkaline Phosphatase (46 - 116 U/L) 77 Total Protein (6.4 - 8.2 g/dL) 5.6 Albumin (3.3 - 5.0 g/dL) 3.0 Hematology WBC (4.5 - 11.5 K/uL) 4.5 RBC (4.00 - 5.20 M/uL) 4.69 Hgb (12.0 - 16.0 gm/dL) 13.4 Hct (36.0 - 46.0 %) 40.9 MCV (80 - 100 fL) 87 MCH (26 - 34 pg) 29 RDW (11.6 - 14.8 %) 15.2 Neut % (Auto) (50 - 75 %) 49.0 Lymph % (Auto) (25 - 40 %) 35.3 [place] % (Auto) (3 - 14 %) 13.9 Eos % (Auto) (0 - 4 %) 1.7 Baso % (Auto) (0 - 2 %) 0.1 Plt Count, EDTA (150 - 400 K/uL) 126 PUBS MCHC (31 - 37 g/dL) 33 Toxicology Vancomycin Trough (10.0 - 20.0 ug/mL) 16.6 Discharge Instructions/Meds - finish course of antibiotics - resume home medications
[2016-11-01] MEDS ORDERED: PROBIOTIC FORMU1 CAP PO (13:07)
[2016-11-01] MEDS ORDERED: KEFLEX750 MG PO (13:29)
== END 2016-11-01 14:00 | disposition home or self-care (01) | DRG 872 ==
LOC: ED SRH 00:10 → TRANS SRH 02:48 → ACUTE2 SRH 02:48
PROVIDERS: ADMIT Internal Medicine
DX: A41.9 Sepsis, unspecified organism (principal); L03.114 Cellulitis of left upper limb; Z88.1 Allergy status to other antibiotic agents; Z88.0 Allergy status to penicillin; Z88.2 Allergy status to sulfonamides; E11.9 Type 2 diabetes mellitus without complications; Z79.84 Long term (current) use of oral hypoglycemic drugs; I97.2 Postmastectomy lymphedema syndrome; Z85.3 Personal history of malignant neoplasm of breast; Z87.39 Personal history of other diseases of the musculoskeletal system and connective tissue
CPT/HCPCS: 90065; 90074; 90098; 90100; 91583; 91585; 92031; 92720; 93004; 95059

== ENCOUNTER 2016-11-04 06:16 | Outpatient (CLI) | payer OTHER ==
[~2016-11-04 06:16] MED LIST: ANASTROZOLE1 MG PO; CLEOCIN300 MG PO; INVOKANA100 MG PO; KEFLEX750 MG PO; METFORMIN HCL500 MG PO; MIRAPEX0.25 MG PO; MULTIPLE VITAMIN PO; NEURONTIN300 MG PO; PROBIOTIC FORMU1 CAP PO; TAMOXIFEN CITRA10 MG PO; VICTOZA18 MG/3 ML SC
== END 2016-11-04 23:00 | disposition home or self-care (01) ==
LOC: LAB SRH 06:16
DX: Z85.3 Personal history of malignant neoplasm of breast (principal); E03.9 Hypothyroidism, unspecified; R53.83 Other fatigue; L03.119 Cellulitis of unspecified part of limb
CPT/HCPCS: 90074; 90100; 90193; 90302; 90648; 91023; 91096; 91282; 91286; 91585; 92720; 93140; 95059; 98020